=== PATIENT | female | born 1950 | race Caucasian/White ===

== ENCOUNTER 2017-04-17 10:51 | Day surgery (SDC) | payer MEDICARE, OTHER ==
[~2017-04-17 10:51] MED LIST: Bupivacaine 0.25%/EPINEPHrine 1:200,000 10 ML SDV ONE
[2017-04-17] MEDS ORDERED: Bupivacaine 0.25%/EPINEPHrine 1:200,000 10 ML SDV INJECT ONE (11:00)
[2017-04-17] MEDS ORDERED: Lactated Ringers 1,000 ML IV SCH (11:00)
[2017-04-17] MEDS ORDERED: ceFAZolin 2 GM in Premix Bag 1 BAG IV ONE (11:00)
[2017-04-17] MEDS ORDERED: Acetaminophen/HYDROcodone 325-5 MG Tab PO PRN (11:00)
--- NOTE | 2017-04-17 11:51 | PCM.PREANE ---
Preanesthetic Assessment - Anesthesia/Transfusion/Family Hx Anesthesia History: Prior Anesthesia Without Reaction Family History of Anesthesia Reaction: No Transfusion History: No Prior Transfusion(s) - Review of Systems General: No Symptoms Pulmonary: No Symptoms Cardiovascular: No Symptoms Gastrointestinal: No symptoms Neurological: No Symptoms Other: Reports: None - Physical Assessment NPO Status Date: 04/16/17 NPO Status Time: 21:00 O2 Sat by Pulse Oximetry: 96 Respiratory Rate: 16 Vital Signs: Last Vital Signs Temp 36.7 C 04/17/17 11:39 Pulse 71 04/17/17 11:39 Resp 16 04/17/17 11:39 BP 122/66 04/17/17 11:39 Pulse Ox 96 04/17/17 11:39 Height: 1.68 m Weight: 96.615 kg ASA Class: 1 Mental Status: Alert & Oriented x3 Dentition: Reports: Dentures ROM/Head Extension: Full Lungs: Clear to auscultation, Normal respiratory effort Cardiovascular: Regular Rate, Regular Rhythm - Allergies Allergies/Adverse Reactions: Allergies Allergy/AdvReac Type Severity Reaction Status Date / Time No Known Allergies Allergy Verified 04/14/17 12:06 - Anesthesia Plan Pre-Op Medication Ordered: None - Acknowledgements Anesthesia Type Planned: MAC Pt an Appropriate Candidate for the Planned Anesthesia: Yes Alternatives and Risks of Anesthesia Discussed w Pt/Guardian: Yes Pt/Guardian Understands and Agrees with Anesthesia Plan: Yes PreAnesthesia Questionnaire Other HEENT History: wears glasses, has upper denture and lower partial denture Cardiovascular History: Reports: None Respiratory History: Reports: None Gastrointestinal History: Reports: None Genitourinary History: Reports: None TILE DITCHER History: Reports: None Musculoskeletal History: Reports: Fracture Other Musculoskeletal History: hx of fx bone in foot Neurological History: Reports: None Psychiatric History: Reports: None Endocrine/Metabolic History: Reports: Obesity/BMI 30+ Hematologic History: Reports: None Immunologic History: Reports: None Oncologic (Cancer) History: Reports: None Dermatologic History: Reports: None - Past Surgical History Head Surgeries/Procedures: Reports: None GI Surgical History: Reports: Appendectomy Female Surgical History: Reports: Hysterectomy Oncologic Surgical History: Reports: None - SUBSTANCE USE Smoking Status *Q: Former Smoker Recreational Drug Use History: No - HOME MEDS Home Medications: Home Meds . [No Known Home Meds] 04/14/17 [History] - CURRENT (IN HOUSE) MEDS Current Meds: Current Medications Hydrocodone Bitart/Acetaminophen ([place] 325-5 Mg) 1 tab PO Q4H PRN PRN Reason: Pain Lactated Ringer's (Ringers, Lactated) 1,000 mls @ 125 mls/hr IV ASDIRECTED JESUS Last Admin: 04/17/17 11:18 Dose: 125 mls/hr Discontinued Medications Bupivacaine HCl/Epinephrine Bitart ([place] 0.25%/Epinephrine 1:200,000) 20 ml INJECT ONETIME ONE Stop: 04/17/17 11:01 Bupivacaine HCl/Epinephrine Bitart ([place] 0.25%/Epinephrine 1:200,000) Confirm Administered Dose 30 ml .ROUTE .STK-MED ONE Stop: 04/17/17 07:23 Cefazolin Sodium/Dextrose 2 gm (/ Premix) 50 mls @ 100 mls/hr IV ONETIME ONE Stop: 04/17/17 11:29
[2017-04-17] MEDS ORDERED: Lidocaine 2% 5 ML SDV ONE (13:32)
[2017-04-17] MEDS ORDERED: fentaNYL 100 MCG/2 ML SDV ONE ×2 (13:33→14:23)
[2017-04-17] MEDS ORDERED: Propofol 200 MG/20 ML SDV ONE (13:33)
[2017-04-17] MEDS ORDERED: Midazolam 1 MG/ML 2 ML SDV ONE (13:33)
[2017-04-17] MEDS ORDERED: ceFAZolin 1 GM Vial ONE (13:39)
[2017-04-17] MEDS ORDERED: Sodium Chloride 0.9% 20 ML ONE (13:39)
[2017-04-17] MEDS ORDERED: ePHEDrine 50 MG/ML SDV ONE (14:14)
[2017-04-17] MEDS ORDERED: fentaNYL 100 MCG/2 ML SDV IVPUSH PRN (14:28)
--- NOTE | 2017-04-17 15:13 | PCM.POSTAN ---
POST ANESTHESIA ASSESSMENT - MENTAL STATUS Mental Status: alert, oriented - RESPIRATORY Respiratory Status: respiratory rate WNL, airway patent, O2 saturation stable - CARDIOVASCULAR CV Status: pulse rate WNL, blood pressure stable - GASTROINTESTINAL GI Status: no symptoms - POST OP HYDRATION Hydration Status: adequate & stable
--- NOTE | 2017-04-17 15:13 | PCM48HPAN ---
Post Anesthesia Note - EVALUATION WITHIN 48HRS OF ANESTHETIC Vital Signs in Normal Range: Yes Patient Participated in Evaluation: Yes Respiratory Function Stable: Yes Airway Patent: Yes Cardiovascular Function Stable: Yes Hydration Status Stable: Yes Pain Control Satisfactory: Yes Nausea and Vomiting Control Satisfactory: Yes Mental Status Recovered: Yes
[2017-04-17 15:57] VITALS: BP 112/64
--- NOTE | 2017-04-18 11:26 | OR ---
SURGEON: EUGENIA FINLEY MD DATE OF PROCEDURE: 04/17/2017 INDICATIONS: Ms. Villanueva is a 66-year-old female with masses on the left arm. The superior mass is characteristic for a lipoma, however the lower mass is concerning for neurovascular involvement. It is significantly tender. We did an ultrasound and a subsequent MRI for confirmed diagnosis. Risks and benefits of excision were discussed with her and she was in agreement to proceed. She does not want it removed if it is part of the ulnar nerve proper, but we discussed it is most likely a schwannoma. If that is the case she does want it removed. She does not want any neurovascular defect that would cause weakness of the hand. We discussed about the risks and she would like to proceed with excision. Risks were including, but not limited to, bleeding, infection, damage to underlying or overlying structures, possible need for future interventions and possible scarring. PREOPERATIVE DIAGNOSIS: Left arm mass x2. POSTOPERATIVE DIAGNOSIS: Left arm subcutaneous lipoma and schwannoma. PROCEDURES: 1. Excision of left upper forearm lipoma 3 cm2, deep subcutaneous. 2. Excision of schwannoma from the peripheral sheath of the ulnar nerve of the forearm 2 cm2 with exploration of the ulnar nerve to ensure no involvement. PROCEDURE IN DETAILS: After informed consent was obtained and placed on the chart, the patient was brought to the operating theater and laid in the supine position. After adequate general anesthetic was obtained, the area was prepped and draped and a time-out was completed to confirm side and site. The arm was exsanguinated and tourniquet was inflated to 200 mmHg and the arm was prepped and draped in a normal fashion prior to this. Once adequately prepped and draped, attention was then paid to dissection over the lipoma. A small 1.5 cm incision was made and this was easily expressed. This was sent for pathology. The skin was closed with deep 4-0 Monocryl running subcuticular stitch. Attention was then paid to the distal lesions and dissection was carried superficially over this with great care to protect the neurovascular structures. The lesion was exposed and very characteristic for a schwannoma. Dissection was carried down to the ulnar nerve and ulnar artery and direct visualization indicated that these were in continuity without any involvement with the mass. The mass appeared to be coming from the peripheral nerve sheath. It was not in direct communication with the ulnar nerve proper. The schwannoma was then excised easily and meticulous hemostasis was obtained. The ulnar nerve and ulnar artery were again appreciated to be in continuity prior to closure without any damage. The skin was then closed using a 4-0 Monocryl stitch in a running subcuticular fashion with deep 3-0 Monocryl for dermal stitches. Once adequately closed, the wound was dressed with Steri-Strips and a 2-inch JOE wrap on top of fluffs. The patient tolerated the procedure well and all counts and needles were correct at the end of the case. FOLLOWUP INSTRUCTIONS: The patient will see us in one week for re-evaluation sooner if any problems, questions, or concerns. She was given a prescription for pain control. The over the counter medications should be sufficient. CAITLIN / GENARO /[id number] MTDD
== END 2017-04-17 15:35 | disposition home or self-care (01) ==
LOC: MW.SDS 10:51
PROVIDERS: ATTEND Plastic Surgery
PROC: 0JBH3ZZ Excision of Left Lower Arm Subcutaneous Tissue and Fascia, Percutaneous Approach (ICD-10-PCS; principal; 2017-04-17)
PROC: 0JBG3ZZ Excision of Right Lower Arm Subcutaneous Tissue and Fascia, Percutaneous Approach (ICD-10-PCS; 2017-04-17)
DX: D17.22 Benign lipomatous neoplasm of skin and subcutaneous tissue of left arm (principal); D36.12 Benign neoplasm of peripheral nerves and autonomic nervous system, upper limb, including shoulder; E66.9 Obesity, unspecified; Z87.891 Personal history of nicotine dependence; Z90.49 Acquired absence of other specified parts of digestive tract; Z90.710 Acquired absence of both cervix and uterus; Z68.34 Body mass index [BMI] 34.0-34.9, adult
CPT/HCPCS: 25075; 25120; 88304; 88307; J0690; J2250; J3010; J7120; 00400; J2704